=== PATIENT | male | born 1950 | race Two or more races ===

== ENCOUNTER 2018-08-04 12:00 | Inpatient (IN) | payer OTHER ==
[2018-08-04] MEDS: SODIUM CHLORIDE 0.9% 1L BAG IV* (12:35)
[2018-08-04] MEDS: CEFTRIAXONE 1 GM/50 ML (PMX) 50 ML IVPB (12:35)
[2018-08-04] MEDS: IBUPROFEN 600 MG TAB PO (12:35)
[2018-08-04 12:44] LABS: ABNORMAL IP MESSAGE 1; HEMATOCRIT 51.8 % (42.0-52.0); HEMOGLOBIN 17.3 g/dl (14.0-18.0); MEAN CORPUSCULAR HEMOGLOBIN 32.1 pg (29.0-33.0); MEAN CORPUSCULAR HGB CONC 33.4 g/dl (32.0-37.0); MEAN CORPUSCULAR VOLUME 96.1 fl (82.0-101.0); MEAN PLATELET VOLUME 10.1 fl (7.4-10.4); PLATELET COUNT 254 10^3/UL (140-415); POSITIVE DIFF @See below; RED BLOOD COUNT 5.39 10^6/ul (4.70-6.10); RED CELL DISTRIBUTION WIDTH 13.2 % (11.5-14.5)
[2018-08-04 12:44] LABS: WHITE BLOOD COUNT 30.5 10^3/ul (4.8-10.8)
[2018-08-04 12:46] LABS: ADD MAN DIFF? YES
[2018-08-04 12:59] LABS: ADD UMIC YES; INR 1.18; PARTIAL THROMBOPLASTIN TIME 29.7 Sec (23.0-35.0); PROTIME 15.1 Sec (11.9-14.9); PT RATIO 1.2; UR ASCORBIC ACID 20 mg/dL (NEGATIVE); UR BILIRUBIN (Dip) NEGATIVE (NEGATIVE); UR BLOOD (Dip) 1+ mg/dL (NEGATIVE); UR CLARITY CLOUDY (CLEAR); UR COLOR BLUE (YELLOW); UR GLUCOSE (Dip) NEGATIVE (NEGATIVE); UR KETONES (Dip) TRACE mg/dL (NEGATIVE); UR LEUKOCYTE ESTERASE (Dip) 2+ Leu/ul (NEGATIVE); UR MUCUS MANY /HPF (NONE SEEN); UR NITRITE (Dip) NEGATIVE (NEGATIVE); UR NONSQUAMOUS EPITHELIAL CELL 3 /HPF (NONE SEEN); UR RBC 77 /HPF (0-5); UR SPECIFIC GRAVITY (Dip) 1.021 (1.003-1.030); UR SQUAMOUS EPITHELIAL CELL FEW /HPF (FEW); UR TOTAL PROTEIN (Dip) 2+ mg/dl (NEGATIVE); UR UROBILINOGEN (Dip) NEGATIVE (NEGATIVE); UR WBC > 182 /HPF (0-5)
[2018-08-04 13:09] LABS: ALANINE AMINOTRANSFERASE 22 IU/L (13-69); ALBUMIN 4.4 g/dl (3.3-4.9); ALBUMIN/GLOBULIN RATIO 1.15; ALKALINE PHOSPHATASE 100 IU/L (42-121); ANION GAP 13 (5-13); ASPARTATE AMINO TRANSFERASE 30 IU/L (15-46); BLOOD UREA NITROGEN 20 mg/dl (7-20); CALCIUM 9.3 mg/dl (8.4-10.2); CARBON DIOXIDE 20 mmol/L (21-31); CHLORIDE 109 mmol/L (97-110); CREATININE 1.56 mg/dl (0.61-1.24); Estimated GFR 45 mL/min (>60); GLUCOSE 125 mg/dl (70-220); LIPASE 61 U/L (23-300); POTASSIUM 4.8 mmol/L (3.5-5.1); SODIUM 142 mmol/L (135-144); TOTAL PROTEIN 8.2 g/dl (6.1-8.1)
[2018-08-04 13:15] LABS: ANISOCYTOSIS 2+ (0-0); BAND NEUTROPHILS #M 2.1 10^3/ul (0.0-0.6); BAND NEUTROPHILS % (M) 7 % (0-4); LYMPHOCYTES #M 1.8 10^3/ul (0.8-2.9); LYMPHOCYTES % (M) 6 % (15-51); MICROCYTOSIS 2+ (0-0); MONOCYTE #M 3.6 10^3/ul (0.3-0.9); MONOCYTES % (M) 12 % (0-11); PLATELET ESTIMATE NORMAL; POLYCHROMASIA 3+ (0-0); REACTIVE LYMPHOCYTES #M 0.3 10^3/ul (0.0-0.0); REACTIVE LYMPHOCYTES% (M) 1 % (0-0); SEG NEUT #M 23.2 10^3/ul (1.6-7.5); SEGMENTED NEUTROPHILS (M) % 74 % (39-77); SMUDGE%M 3 % (0-0)
[2018-08-04 13:19] LABS: TROPONIN-I 0.047 ng/ml (0.000-0.120)
[2018-08-04] MEDS: SOD CHLORIDE 0.9% 1,000 ML IV ×3 (15:37→18:46)
[2018-08-04] MEDS ORDERED: NACL 0.9% 3 ML SYG IV (16:00)
[2018-08-04] MEDS ORDERED: DOCUSATE SODIUM 100 MG CAP PO (16:00)
[2018-08-04] MEDS ORDERED: morphine 2 MG INJ IV (16:00)
[2018-08-04] MEDS ORDERED: ONDANSETRON 4 MG INJ IV (16:00)
[2018-08-04] MEDS ORDERED: ZOLPIDEM 5 MG TAB PO (16:00)
[2018-08-04 17:00] LABS: LACTIC ACID 0.8 mmol/L (0.5-2.0)
[2018-08-04] MEDS ORDERED: LORAZEPAM 2 MG INJ IV (22:00)
[2018-08-04] MEDS: OXCARBAZEPINE 300 MG TAB PO (22:06)
[2018-08-04] MEDS: TOPIRAMATE 100 MG TAB PO (22:06)
[2018-08-05] MEDS: ACETAMINOPHEN 325 MG TAB PO ×2 (00:57→21:02)
[2018-08-05] MEDS: SOD CHLORIDE 0.9% 1,000 ML IV ×3 (01:53→21:03)
[2018-08-05] MEDS: PANTOPRAZOLE (EC) 40 MG TAB PO ×2 (05:46→17:41)
[2018-08-05 07:01] LABS: ADD MAN DIFF? NO
[2018-08-05 07:08] LABS: BASOPHILS % 0.3 % (0.0-2.0); EOSINOPHILS % 0.1 % (0.0-7.0); HEMATOCRIT 44.8 % (42.0-52.0); HEMOGLOBIN 14.1 g/dl (14.0-18.0); LYMPHOCYTES # 1.1 10^3/ul (0.8-2.9); LYMPHOCYTES % 8.2 % (15.0-51.0); MEAN CORPUSCULAR HEMOGLOBIN 31.7 pg (29.0-33.0); MEAN CORPUSCULAR HGB CONC 31.5 g/dl (32.0-37.0); MEAN CORPUSCULAR VOLUME 100.7 fl (82.0-101.0); MEAN PLATELET VOLUME 9.4 fl (7.4-10.4); MONOCYTES % 7.8 % (0.0-11.0); NEUTROPHIL # 10.8 10^3/ul (1.6-7.5); NEUTROPHILS % 83.3 % (39.0-77.0); PLATELET COUNT 128 10^3/UL (140-415); RED BLOOD COUNT 4.45 10^6/ul (4.70-6.10); RED CELL DISTRIBUTION WIDTH 13.4 % (11.5-14.5)
[2018-08-05 07:19] LABS: HEMOGLOBIN A1C 4.7 % (0-5.9)
[2018-08-05 07:32] LABS: ANION GAP 8 (5-13); BLOOD UREA NITROGEN 14 mg/dl (7-20); CALCIUM 7.8 mg/dl (8.4-10.2); CARBON DIOXIDE 18 mmol/L (21-31); CHLORIDE 117 mmol/L (97-110); CREATININE 0.91 mg/dl (0.61-1.24); Estimated GFR > 60 mL/min (>60); GLUCOSE 82 mg/dl (70-220); MAGNESIUM 1.8 mg/dl (1.7-2.5); SODIUM 143 mmol/L (135-144)
[2018-08-05] MEDS: FISH OIL 1,000 MG CAP PO (09:00)
[2018-08-05] MEDS ORDERED: NON-FORMULARY/PATIENT OWN MED (Cholecalciferol (Vitamin D3) (Vitamin D-3) 2,000 UNIT) PO (09:00)
[2018-08-05] MEDS: TOPIRAMATE 100 MG TAB PO ×2 (09:27→21:02)
[2018-08-05] MEDS: FINASTERIDE 5 MG TAB PO (09:27)
[2018-08-05] MEDS: MULTIVITAMINS THERAPEUTIC TAB PO (09:27)
[2018-08-05] MEDS: CHOLECALCIFEROL 2,000 UNIT CAP PO (09:27)
[2018-08-05] MEDS: MAGNESIUM OXIDE 400 MG TAB PO (09:28)
[2018-08-05] MEDS: LOSARTAN 25 MG TAB PO (09:28)
[2018-08-05] MEDS: OXCARBAZEPINE 300 MG TAB PO ×2 (09:28→21:02)
[2018-08-05] MEDS: FENOFIBRATE 145 MG TAB PO (09:35)
[2018-08-05] MEDS: HYDROCODONE/APAP (5/325) TAB PO ×2 (09:43→16:04)
[2018-08-05] MEDS: CEFTRIAXONE 1 GM/50 ML (PMX) 50 ML IVPB (12:49)
[2018-08-05] MEDS: POTASSIUM PHOSPHATE 15 MM in SOD CHLORIDE 0.9% 250 ML IVPB (15:25)
[2018-08-05] MEDS: clonAZEPAM 0.5 MG TAB PO (21:02)
[2018-08-06] MEDS: SOD CHLORIDE 0.9% 1,000 ML IV ×2 (04:45→16:17)
[2018-08-06] MEDS: PANTOPRAZOLE (EC) 40 MG TAB PO (04:45)
[2018-08-06 08:56] LABS: ADD MAN DIFF? NO
[2018-08-06] MEDS: FISH OIL 1,000 MG CAP PO ×2 (08:59→09:00)
[2018-08-06] MEDS: MULTIVITAMINS THERAPEUTIC TAB PO (09:00)
[2018-08-06] MEDS: FINASTERIDE 5 MG TAB PO (09:00)
[2018-08-06] MEDS: OXCARBAZEPINE 300 MG TAB PO ×2 (09:01→21:42)
[2018-08-06 09:02] LABS: BASOPHILS % 0.2 % (0.0-2.0); EOSINOPHILS % 0.2 % (0.0-7.0); HEMATOCRIT 40.9 % (42.0-52.0); HEMOGLOBIN 13.6 g/dl (14.0-18.0); LYMPHOCYTES # 0.8 10^3/ul (0.8-2.9); LYMPHOCYTES % 14.3 % (15.0-51.0); MEAN CORPUSCULAR HEMOGLOBIN 31.7 pg (29.0-33.0); MEAN CORPUSCULAR HGB CONC 33.3 g/dl (32.0-37.0); MEAN CORPUSCULAR VOLUME 95.3 fl (82.0-101.0); MEAN PLATELET VOLUME 9.6 fl (7.4-10.4); MONOCYTE # 0.6 10^3/ul (0.3-0.9); MONOCYTES % 11.1 % (0.0-11.0); NEUTROPHIL # 4.3 10^3/ul (1.6-7.5); NEUTROPHILS % 73.9 % (39.0-77.0); PLATELET COUNT 141 10^3/UL (140-415); RED BLOOD COUNT 4.29 10^6/ul (4.70-6.10); RED CELL DISTRIBUTION WIDTH 13.4 % (11.5-14.5)
[2018-08-06 09:02] LABS: WHITE BLOOD COUNT 5.8 10^3/ul (4.8-10.8)
[2018-08-06] MEDS: MAGNESIUM OXIDE 400 MG TAB PO (09:08)
[2018-08-06] MEDS: CHOLECALCIFEROL 2,000 UNIT CAP PO (09:08)
[2018-08-06] MEDS: FENOFIBRATE 145 MG TAB PO (09:08)
[2018-08-06] MEDS: TOPIRAMATE 100 MG TAB PO ×2 (09:08→21:43)
[2018-08-06] MEDS: clonAZEPAM 0.5 MG TAB PO (09:17)
[2018-08-06] MEDS: LOSARTAN 25 MG TAB PO (09:17)
[2018-08-06 09:24] LABS: ANION GAP 7 (5-13); BLOOD UREA NITROGEN 11 mg/dl (7-20); CALCIUM 7.8 mg/dl (8.4-10.2); CARBON DIOXIDE 18 mmol/L (21-31); CHLORIDE 115 mmol/L (97-110); CREATININE 0.89 mg/dl (0.61-1.24); Estimated GFR > 60 mL/min (>60); GLUCOSE 103 mg/dl (70-220); MAGNESIUM 1.9 mg/dl (1.7-2.5); SODIUM 140 mmol/L (135-144)
[2018-08-06] MEDS: CEFTRIAXONE 1 GM/50 ML (PMX) 50 ML IVPB (13:30)
[2018-08-06] MEDS: LACTOBACILLUS RHAMNOSUS CAP PO ×2 (13:30→21:42)
[2018-08-06] MEDS: DOCUSATE SODIUM 100 MG CAP PO (16:52)
[2018-08-06] MEDS: MAGNESIUM SULFATE 1 GM/D5W 100 ML IVPB (16:52)
[2018-08-06] MEDS: HYDROCODONE/APAP (5/325) TAB PO (17:01)
[2018-08-06] MEDS: DILTIAZEM 25 MG INJ IV (17:20)
[2018-08-06] MEDS ORDERED: DILTIAZEM 25 MG INJ IV (17:30)
[2018-08-06 17:51] LABS: CREATINE KINASE 146 IU/L (23-200)
[2018-08-06 18:00] LABS: CK INDEX 1.3; CK-MB 1.88 ng/ml (0.0-2.4); TROPONIN-I 0.059 ng/ml (0.000-0.120)
[2018-08-06] MEDS: ADENOSINE 6 MG INJ IV ×2 (20:25→20:34)
[2018-08-06] MEDS: AMIODARONE 150MG/D5W BOLUS 100 ML IV (21:40)
[2018-08-06] MEDS: METOPROLOL 50 MG TAB PO (21:43)
[2018-08-06] MEDS: AMIODARONE 900 MG in DEXTROSE 5% 482 ML IV (21:59)
[2018-08-06] MEDS: HEPARIN 5,000 UNIT/1 ML VIAL SC (22:26)
[2018-08-07] MEDS: ACETAMINOPHEN 325 MG TAB PO (02:33)
[2018-08-07] MEDS: AMIODARONE 900 MG in DEXTROSE 5% 482 ML IV ×2 (04:04→18:51)
[2018-08-07] MEDS: DOCUSATE SODIUM 100 MG CAP PO ×2 (06:13→16:00)
[2018-08-07 07:51] LABS: ADD MAN DIFF? NO
[2018-08-07 08:03] LABS: WHITE BLOOD COUNT 8.4 10^3/ul (4.8-10.8)
[2018-08-07 08:03] LABS: BASOPHILS % 0.5 % (0.0-2.0); EOSINOPHILS # 0.1 10^3/ul (0.0-0.5); EOSINOPHILS % 1.2 % (0.0-7.0); HEMATOCRIT 41.5 % (42.0-52.0); HEMOGLOBIN 13.8 g/dl (14.0-18.0); LYMPHOCYTES # 1.8 10^3/ul (0.8-2.9); LYMPHOCYTES % 21.9 % (15.0-51.0); MEAN CORPUSCULAR HEMOGLOBIN 31.4 pg (29.0-33.0); MEAN CORPUSCULAR HGB CONC 33.3 g/dl (32.0-37.0); MEAN CORPUSCULAR VOLUME 94.3 fl (82.0-101.0); MEAN PLATELET VOLUME 10.2 fl (7.4-10.4); MONOCYTE # 1.4 10^3/ul (0.3-0.9); MONOCYTES % 17.1 % (0.0-11.0); NEUTROPHIL # 4.9 10^3/ul (1.6-7.5); NEUTROPHILS % 58.8 % (39.0-77.0); PLATELET COUNT 141 10^3/UL (140-415); RED CELL DISTRIBUTION WIDTH 13.4 % (11.5-14.5)
[2018-08-07 08:15] LABS: ANION GAP 8 (5-13); BLOOD UREA NITROGEN 10 mg/dl (7-20); CALCIUM 8.4 mg/dl (8.4-10.2); CARBON DIOXIDE 21 mmol/L (21-31); CHLORIDE 114 mmol/L (97-110); CREATINE KINASE 130 IU/L (23-200); CREATININE 0.88 mg/dl (0.61-1.24); Estimated GFR > 60 mL/min (>60); GLUCOSE 115 mg/dl (70-220); POTASSIUM 4.2 mmol/L (3.5-5.1); SODIUM 143 mmol/L (135-144)
[2018-08-07 08:21] LABS: MAGNESIUM 2.4 mg/dl (1.7-2.5)
[2018-08-07 08:28] LABS: CK INDEX 1.3; CK-MB 1.64 ng/ml (0.0-2.4); TROPONIN-I 0.043 ng/ml (0.000-0.120)
[2018-08-07] MEDS: FINASTERIDE 5 MG TAB PO (08:57)
[2018-08-07] MEDS: FENOFIBRATE 145 MG TAB PO (08:59)
[2018-08-07] MEDS: CHOLECALCIFEROL 2,000 UNIT CAP PO (08:59)
[2018-08-07] MEDS: PANTOPRAZOLE (EC) 40 MG TAB PO (08:59)
[2018-08-07] MEDS: TOPIRAMATE 100 MG TAB PO ×2 (08:59→22:30)
[2018-08-07] MEDS: LINAGLIPTIN 5 MG TABLET PO (08:59)
[2018-08-07] MEDS: MULTIVITAMINS THERAPEUTIC TAB PO (08:59)
[2018-08-07] MEDS: MAGNESIUM OXIDE 400 MG TAB PO (08:59)
[2018-08-07] MEDS: FISH OIL 1,000 MG CAP PO (09:00)
[2018-08-07] MEDS: LACTOBACILLUS RHAMNOSUS CAP PO ×2 (09:00→22:31)
[2018-08-07] MEDS: METOPROLOL 50 MG TAB PO ×2 (09:00→22:31)
[2018-08-07] MEDS: OXCARBAZEPINE 300 MG TAB PO ×2 (09:00→22:30)
[2018-08-07] MEDS: LOSARTAN 25 MG TAB PO (09:01)
[2018-08-07] MEDS: HEPARIN 5,000 UNIT/1 ML VIAL SC ×2 (09:09→22:43)
[2018-08-07] MEDS ORDERED: FUROSEMIDE 20 MG INJ IV (11:30)
[2018-08-07] MEDS: CEFTRIAXONE 1 GM/50 ML (PMX) 50 ML IVPB (12:20)
[2018-08-07] MEDS: FUROSEMIDE 20 MG TAB PO (15:40)
[2018-08-08] MEDS: DOCUSATE SODIUM 100 MG CAP PO ×2 (04:00→16:35)
[2018-08-08 06:14] LABS: ADD MAN DIFF? NO
[2018-08-08 06:16] LABS: BASOPHILS % 0.3 % (0.0-2.0); EOSINOPHILS # 0.1 10^3/ul (0.0-0.5); EOSINOPHILS % 1.3 % (0.0-7.0); HEMATOCRIT 40.2 % (42.0-52.0); HEMOGLOBIN 13.4 g/dl (14.0-18.0); LYMPHOCYTES # 2.1 10^3/ul (0.8-2.9); LYMPHOCYTES % 18.6 % (15.0-51.0); MEAN CORPUSCULAR HEMOGLOBIN 31.4 pg (29.0-33.0); MEAN CORPUSCULAR HGB CONC 33.3 g/dl (32.0-37.0); MEAN CORPUSCULAR VOLUME 94.1 fl (82.0-101.0); MEAN PLATELET VOLUME 10.4 fl (7.4-10.4); MONOCYTE # 1.4 10^3/ul (0.3-0.9); MONOCYTES % 12.4 % (0.0-11.0); NEUTROPHIL # 7.4 10^3/ul (1.6-7.5); NEUTROPHILS % 66.9 % (39.0-77.0); PLATELET COUNT 149 10^3/UL (140-415); RED BLOOD COUNT 4.27 10^6/ul (4.70-6.10); RED CELL DISTRIBUTION WIDTH 13.4 % (11.5-14.5)
[2018-08-08 07:05] LABS: ANION GAP 6 (5-13); BLOOD UREA NITROGEN 11 mg/dl (7-20); CALCIUM 8.2 mg/dl (8.4-10.2); CARBON DIOXIDE 22 mmol/L (21-31); CHLORIDE 115 mmol/L (97-110); Estimated GFR > 60 mL/min (>60); GLUCOSE 104 mg/dl (70-220); POTASSIUM 4.2 mmol/L (3.5-5.1); SODIUM 143 mmol/L (135-144)
[2018-08-08] MEDS: MULTIVITAMINS THERAPEUTIC TAB PO (08:57)
[2018-08-08] MEDS: OXCARBAZEPINE 300 MG TAB PO ×2 (08:57→22:14)
[2018-08-08] MEDS: FINASTERIDE 5 MG TAB PO (08:57)
[2018-08-08] MEDS: FENOFIBRATE 145 MG TAB PO (08:58)
[2018-08-08] MEDS: AMIODARONE 200 MG TAB PO ×2 (08:58→22:13)
[2018-08-08] MEDS: PANTOPRAZOLE (EC) 40 MG TAB PO (08:58)
[2018-08-08] MEDS: METOPROLOL 50 MG TAB PO ×2 (08:59→22:14)
[2018-08-08] MEDS: FISH OIL 1,000 MG CAP PO (08:59)
[2018-08-08] MEDS: CHOLECALCIFEROL 2,000 UNIT CAP PO (08:59)
[2018-08-08] MEDS: LACTOBACILLUS RHAMNOSUS CAP PO ×2 (08:59→22:14)
[2018-08-08] MEDS: TOPIRAMATE 100 MG TAB PO ×2 (08:59→22:14)
[2018-08-08] MEDS: HEPARIN 5,000 UNIT/1 ML VIAL SC ×2 (09:00→22:22)
[2018-08-08] MEDS: LINAGLIPTIN 5 MG TABLET PO (09:00)
[2018-08-08] MEDS: CEFTRIAXONE 1 GM/50 ML (PMX) 50 ML IVPB (11:14)
[2018-08-08] MEDS: ASPIRIN 81 MG TAB PO (11:14)
[2018-08-08] MEDS ORDERED: DILTIAZEM 25 MG INJ IV (12:30)
[2018-08-08 12:47] LABS: CHOLESTEROL 105 mg/dl (100-200)
[2018-08-08 12:47] LABS: CHOL/HDL RATIO 4.7 RATIO; HDL CHOLESTEROL 22 mg/dl (30-78); LDL CHOLESTEROL,CALCULATED 56 mg/dl; TRIGLYCERIDES 137 mg/dl (0-149)
[2018-08-08] MEDS ORDERED: ATORVASTATIN 40 MG TAB PO (21:00)
[2018-08-09] MEDS: DOCUSATE SODIUM 100 MG CAP PO ×2 (05:55→15:11)
[2018-08-09 06:38] LABS: ADD MAN DIFF? NO
[2018-08-09 06:48] LABS: BASOPHILS % 0.3 % (0.0-2.0); EOSINOPHILS # 0.2 10^3/ul (0.0-0.5); EOSINOPHILS % 1.3 % (0.0-7.0); HEMATOCRIT 40.7 % (42.0-52.0); HEMOGLOBIN 13.7 g/dl (14.0-18.0); LYMPHOCYTES % 14.1 % (15.0-51.0); MEAN CORPUSCULAR HEMOGLOBIN 31.6 pg (29.0-33.0); MEAN CORPUSCULAR HGB CONC 33.7 g/dl (32.0-37.0); MEAN PLATELET VOLUME 10.3 fl (7.4-10.4); MONOCYTE # 1.2 10^3/ul (0.3-0.9); MONOCYTES % 8.7 % (0.0-11.0); NEUTROPHIL # 10.5 10^3/ul (1.6-7.5); PLATELET COUNT 174 10^3/UL (140-415); RED BLOOD COUNT 4.33 10^6/ul (4.70-6.10); RED CELL DISTRIBUTION WIDTH 13.1 % (11.5-14.5)
[2018-08-09 07:23] LABS: PHOSPHORUS 2.3 mg/dl (2.5-4.9)
[2018-08-09 07:23] LABS: MAGNESIUM 2.2 mg/dl (1.7-2.5)
[2018-08-09 07:24] LABS: ANION GAP 9 (5-13); BLOOD UREA NITROGEN 14 mg/dl (7-20); CALCIUM 8.2 mg/dl (8.4-10.2); CARBON DIOXIDE 17 mmol/L (21-31); CHLORIDE 117 mmol/L (97-110); CREATININE 0.82 mg/dl (0.61-1.24); Estimated GFR > 60 mL/min (>60); GLUCOSE 94 mg/dl (70-220); SODIUM 143 mmol/L (135-144)
[2018-08-09 07:33] LABS: POTASSIUM 3.8 mmol/L (3.5-5.1)
[2018-08-09] MEDS: FISH OIL 1,000 MG CAP PO (09:00)
[2018-08-09] MEDS: OXCARBAZEPINE 300 MG TAB PO ×2 (10:01→20:30)
[2018-08-09] MEDS: TOPIRAMATE 100 MG TAB PO ×2 (10:01→20:28)
[2018-08-09] MEDS: LACTOBACILLUS RHAMNOSUS CAP PO ×2 (10:04→20:28)
[2018-08-09] MEDS: MULTIVITAMINS THERAPEUTIC TAB PO (10:04)
[2018-08-09] MEDS: METOPROLOL 50 MG TAB PO ×2 (10:04→20:29)
[2018-08-09] MEDS: FINASTERIDE 5 MG TAB PO (10:04)
[2018-08-09] MEDS: AMIODARONE 200 MG TAB PO ×2 (10:05→20:27)
[2018-08-09] MEDS: FENOFIBRATE 145 MG TAB PO (10:05)
[2018-08-09] MEDS: LINAGLIPTIN 5 MG TABLET PO (10:05)
[2018-08-09] MEDS: CHOLECALCIFEROL 2,000 UNIT CAP PO (10:05)
[2018-08-09] MEDS: PANTOPRAZOLE (EC) 40 MG TAB PO (10:06)
[2018-08-09] MEDS: HEPARIN 5,000 UNIT/1 ML VIAL SC ×2 (10:16→21:00)
[2018-08-09] MEDS: ASPIRIN 81 MG TAB PO (10:35)
[2018-08-09] MEDS: POTASSIUM PHOSPHATE 20 MEQ in SOD CHLORIDE 0.9% 250 ML IVPB (10:38)
[2018-08-09] MEDS: CEFTRIAXONE 1 GM/50 ML (PMX) 50 ML IVPB (15:03)
[2018-08-09] MEDS: CEFEPIME 2GM/50 ML (PMX) 50 ML IVPB (18:10)
[2018-08-09] MEDS: ATORVASTATIN 40 MG TAB PO (20:26)
[2018-08-10] MEDS: DOCUSATE SODIUM 100 MG CAP PO ×2 (04:00→16:38)
[2018-08-10 06:43] LABS: ADD MAN DIFF? NO
[2018-08-10 06:57] LABS: BASOPHIL # 0.1 10^3/ul (0.0-0.1); BASOPHILS % 0.4 % (0.0-2.0); EOSINOPHILS # 0.4 10^3/ul (0.0-0.5); EOSINOPHILS % 3.1 % (0.0-7.0); HEMOGLOBIN 13.8 g/dl (14.0-18.0); LYMPHOCYTES # 2.4 10^3/ul (0.8-2.9); LYMPHOCYTES % 21.1 % (15.0-51.0); MEAN CORPUSCULAR HEMOGLOBIN 31.3 pg (29.0-33.0); MEAN CORPUSCULAR HGB CONC 33.7 g/dl (32.0-37.0); MEAN PLATELET VOLUME 10.5 fl (7.4-10.4); MONOCYTES % 8.8 % (0.0-11.0); NEUTROPHIL # 7.6 10^3/ul (1.6-7.5); NEUTROPHILS % 65.8 % (39.0-77.0); PLATELET COUNT 212 10^3/UL (140-415); RED BLOOD COUNT 4.41 10^6/ul (4.70-6.10); RED CELL DISTRIBUTION WIDTH 13.1 % (11.5-14.5)
[2018-08-10 06:57] LABS: WHITE BLOOD COUNT 11.5 10^3/ul (4.8-10.8)
[2018-08-10 07:04] LABS: PHOSPHORUS 3.2 mg/dl (2.5-4.9)
[2018-08-10 07:04] LABS: MAGNESIUM 2.3 mg/dl (1.7-2.5)
[2018-08-10 07:15] LABS: ANION GAP 11 (5-13); BLOOD UREA NITROGEN 15 mg/dl (7-20); CALCIUM 8.5 mg/dl (8.4-10.2); CARBON DIOXIDE 17 mmol/L (21-31); CHLORIDE 116 mmol/L (97-110); CREATININE 0.83 mg/dl (0.61-1.24); Estimated GFR > 60 mL/min (>60); GLUCOSE 84 mg/dl (70-220); POTASSIUM 3.8 mmol/L (3.5-5.1); SODIUM 144 mmol/L (135-144)
[2018-08-10] MEDS: LINAGLIPTIN 5 MG TABLET PO (09:00)
[2018-08-10] MEDS: HEPARIN 5,000 UNIT/1 ML VIAL SC ×2 (09:00→21:57)
[2018-08-10] MEDS: METOPROLOL 50 MG TAB PO (09:00)
[2018-08-10] MEDS: CEFEPIME 2GM/50 ML (PMX) 50 ML IVPB ×2 (09:08→21:23)
[2018-08-10] MEDS: ASPIRIN 81 MG TAB PO (09:11)
[2018-08-10] MEDS: FINASTERIDE 5 MG TAB PO (09:11)
[2018-08-10] MEDS: PANTOPRAZOLE (EC) 40 MG TAB PO (09:13)
[2018-08-10] MEDS: AMIODARONE 200 MG TAB PO ×2 (09:13→21:25)
[2018-08-10] MEDS: TOPIRAMATE 100 MG TAB PO ×2 (09:13→21:24)
[2018-08-10] MEDS: CHOLECALCIFEROL 2,000 UNIT CAP PO (09:14)
[2018-08-10] MEDS: OXCARBAZEPINE 300 MG TAB PO ×2 (09:14→21:24)
[2018-08-10] MEDS: MULTIVITAMINS THERAPEUTIC TAB PO (09:14)
[2018-08-10] MEDS: LACTOBACILLUS RHAMNOSUS CAP PO ×2 (09:14→21:24)
[2018-08-10 17:03] LABS: RAPID PLASMA REAGIN NONREACTIVE (NR)
[2018-08-10] MEDS: ATORVASTATIN 40 MG TAB PO (21:24)
[2018-08-10] MEDS: METOPROLOL 25 MG TAB PO (21:25)
[2018-08-11] MEDS: DOCUSATE SODIUM 100 MG CAP PO ×2 (03:52→16:00)
[2018-08-11] MEDS: METOPROLOL 25 MG TAB PO (09:00)
[2018-08-11] MEDS: LINAGLIPTIN 5 MG TABLET PO (09:00)
[2018-08-11] MEDS: CEFEPIME 2GM/50 ML (PMX) 50 ML IVPB (09:12)
[2018-08-11] MEDS: PANTOPRAZOLE (EC) 40 MG TAB PO (09:12)
[2018-08-11] MEDS: CHOLECALCIFEROL 2,000 UNIT CAP PO (09:13)
[2018-08-11] MEDS: FINASTERIDE 5 MG TAB PO (09:18)
[2018-08-11] MEDS: ASPIRIN 81 MG TAB PO (09:18)
[2018-08-11] MEDS: OXCARBAZEPINE 300 MG TAB PO (09:18)
[2018-08-11] MEDS: LACTOBACILLUS RHAMNOSUS CAP PO (09:18)
[2018-08-11] MEDS: MULTIVITAMINS THERAPEUTIC TAB PO (09:18)
[2018-08-11] MEDS: AMIODARONE 200 MG TAB PO (09:21)
[2018-08-11] MEDS: TOPIRAMATE 100 MG TAB PO (09:22)
[2018-08-11] MEDS: HEPARIN 5,000 UNIT/1 ML VIAL SC (09:47)
[2018-08-11] MEDS ORDERED: APIXABAN 5 MG TABLET PO (21:00)
[2018-08-11] MEDS ORDERED: METOPROLOL 25 MG TAB PO (21:00)
[2018-08-12] MEDS ORDERED: AMIODARONE 200 MG TAB PO (09:00)
[2018-08-12] MEDS ORDERED: ASPIRIN 81 MG TAB PO (09:00)
== END 2018-08-11 18:51 | DRG 871 ==
LOC: E/R 12:00 → TEL 08-06 23:44
PROVIDERS: Internal Medicine
DX: A41.51 Sepsis due to Escherichia coli [E. coli] (principal); G92 Toxic encephalopathy; I63.9 Cerebral infarction, unspecified; N39.0 Urinary tract infection, site not specified; I47.1 Supraventricular tachycardia; N17.9 Acute kidney failure, unspecified; R65.20 Severe sepsis without septic shock; I10 Essential (primary) hypertension; E78.00 Pure hypercholesterolemia, unspecified; M81.0 Age-related osteoporosis without current pathological fracture; E83.39 Other disorders of phosphorus metabolism; G40.409 Other generalized epilepsy and epileptic syndromes, not intractable, without status epilepticus; I48.0 Paroxysmal atrial fibrillation; I34.0 Nonrheumatic mitral (valve) insufficiency; E11.9 Type 2 diabetes mellitus without complications; Z86.011 Personal history of benign neoplasm of the brain; Z86.73 Personal history of transient ischemic attack (TIA), and cerebral infarction without residual deficits; Z87.891 Personal history of nicotine dependence
CPT/HCPCS: 36415; 70450; 70551; 71045; 76775; 80048; 80053; 80061; 81001; 82550; 82553; 82962; 83036; 83605; 83690; 83735; 84100; 84484; 85025; 85610; 85651; 85730; 86592; 87040-91; 87086; 93005; 93306; 93880; 96361; 96365; 97116; 97162; 97530; 99285-25